=== PATIENT | male | born 1990 ===

== ENCOUNTER 2016-12-06 16:03 | Emergency (ER) | payer OTHER ==
[2016-12-06 16:11] VITALS: BP 120/70
--- NOTE | 2016-12-06 16:30 | UC ---
Throat Pain/Nasal Femi HPI - HPI Summary HPI Summary: Nasal congestion, sinus discomfort, itchy eyes for about a week. 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 Denies fever, cough, or trouble breathing. - History of Current Complaint Chief Complaint: UCGeneralIllness Stated Complaint: SINUS Time Seen by Provider: 12/06/16 16:13 Hx Obtained From: Patient Onset/Duration: Gradual Onset, Lasting Days Severity: Moderate Cough: None Associated Signs & Symptoms: Positive: Sinus Discomfort, Nasal Discharge. Negative: Fever, Vomiting - Allergies/Home Medications Allergies/Adverse Reactions: Allergies Allergy/AdvReac Type Severity Reaction Status Date / Time No Known Allergies Allergy Verified 12/06/16 16:11 Home Medications: Home Medications Ibuprofen TAB* [Advil TAB*] 400 mg PO ONCE 12/06/16 [History Confirmed 12/06/16] PMH/Surg Hx/FS Hx/Imm Hx Previously Healthy: Yes - Surgical History Surgical History: Yes Surgery Procedure, Year, and Place: wisdom teeth - Family History Known Family History: Positive: Hypertension - Social History Occupation: Employed Full-time Alcohol Use: Occasionally Substance Use Type: None Smoking Status (MU): Never Smoked Tobacco - Immunization History Most Recent Influenza Vaccination: none Review of Systems Constitutional: Negative Skin: Negative Eyes: Drainage - clear ENT: Nasal Discharge Respiratory: Negative Cardiovascular: Negative Gastrointestinal: Negative Genitourinary: Negative Motor: Negative Neurovascular: Negative Musculoskeletal: Negative Neurological: Negative Psychological: Negative All Other Systems Reviewed And Are Negative: Yes Physical Exam Triage Information Reviewed: Yes Appearance: Well-Appearing, No Pain Distress, Well-Nourished Vital Signs: Initial Vital Signs Temp 98.8 F 12/06/16 16:07 Pulse 73 12/06/16 16:07 Resp 16 12/06/16 16:07 BP 120/70 12/06/16 16:07 Pulse Ox 100 12/06/16 16:07 Vital Signs Reviewed: Yes Eye Exam: Normal Eyes: Positive: Conjunctiva Clear ENT: Positive: Hearing grossly normal, Nasal congestion, TMs normal, Other: - mild bilat maxillary sinus tenderness. Negative: Tonsillar swelling, Tonsillar exudate Dental Exam: Normal Neck exam: Normal Neck: Positive: Supple, Nontender, No Lymphadenopathy Respiratory Exam: Normal Respiratory: Positive: Chest non-tender, Lungs clear, Normal breath sounds, No respiratory distress, No accessory muscle use Cardiovascular Exam: Normal Cardiovascular: Positive: RRR, No Murmur Musculoskeletal Exam: Normal Musculoskeletal: Positive: Strength Intact, ROM Intact Neurological Exam: Normal Neurological: Positive: Alert Psychological Exam: Normal Skin Exam: Normal Throat Pain/Nasal Course/Dx - Differential Dx/Diagnosis Provider Diagnoses: Allergic rhinitis. allergic conjunctivitis. allergic sinusitis Discharge - Discharge Plan Condition: Stable Disposition: HOME Prescriptions: Cetirizine* [ZyrTEC 10 MG TAB*] 10 mg PO DAILY #30 tab Mometasone NASAL (NF) [Nasonex (NF)] 2 spray BOTH NARES DAILY #1 nasal.spr predniSONE TAB* [Deltasone TAB*] 50 mg PO DAILY #3 tab Patient Education Materials: Allergic Rhinitis (ED), Conjunctivitis (ED) Referrals: [facility] [Primary Care Provider] - Additional Instructions: As we discussed, I believe your allergies are responsible for your nasal congestion, your sinus discomfort, and your eye itchiness. You should have a dramatic reduction in all of these symptoms over the next few days with this treatment. Take cetirizine 10mg every morning. Do sinus rinses 1-2 times per day (make sure you do it BEFORE nasal spray) Use steroid nasal spray either in morning or night take the 3 days of prednisone to help your symptoms before the nasal spray kicks in take 25-50mg diphenhydramine (benadryl) at night If you still have significant eye symptoms after 5 days, you can add an antihistamine eye drop (these are over the counter and usually labeled as allergy relief)
== END 2016-12-06 16:34 | disposition home or self-care (01) ==
LOC: UCCORT 16:03
DX: J30.9 Allergic rhinitis, unspecified (principal); H10.10 Acute atopic conjunctivitis, unspecified eye
CPT/HCPCS: 99202; G0463